=== PATIENT | female | born 1950 | race Caucasian/White ===

== ENCOUNTER 2021-02-24 14:35 | Emergency (ER) | payer MEDICARE, BC ==
[2021-02-24] MEDS ORDERED: Ibuprofen 400 MG Tab PO ONE (16:03)
--- NOTE | 2021-02-24 16:04 | EDM.PDOC ---
ED HPI GENERAL MEDICAL PROBLEM - General Chief Complaint: Respiratory Problem Stated Complaint: POSS COVID\SOB Time Seen by Provider: 02/24/21 15:25 Source of Information: Reports: Patient, RN Notes Reviewed History Limitations: Reports: No Limitations - History of Present Illness INITIAL COMMENTS - FREE TEXT/NARRATIVE: Patient is a 70-year-old female presenting to the emergency department with complaints of a 10-day history of headaches, body aches, fever, fatigue, diarrhea, and mild cough. She denies chest pain, shortness of breath, or vomiting. She was not vaccinated for Covid. Her is ill with similar symptoms. She has not taken any Tylenol or ibuprofen or any other bxfe-jzx-iqzvuaf medications for treatment of her symptoms today. Patient was not vaccinated against Covid. Generalized Pain Score (Numeric/FACES): 3 - Related Data Allergies Allergy/AdvReac Type Severity Reaction Status Date / Time No Known Allergies Allergy Verified 02/24/21 14:52 Past Medical History Cardiovascular History: Reports: Hypertension [employer] History: Reports: Musculoskeletal History: Reports: Other (See Below) Other Musculoskeletal History: right ankle surgery Psychiatric History: Reports: Anxiety, Depression - Past Surgical History GI Surgical History: Reports: Appendectomy Social & Family History - Tobacco Use Tobacco Use Status *Q: Never Tobacco User Second Hand Smoke Exposure: No - Caffeine Use Caffeine Use: Reports: Coffee - Recreational Drug Use Recreational Drug Use: No ED ROS GENERAL - Review of Systems Review Of Systems: Comprehensive ROS is negative, except as noted in HPI. ED EXAM, GENERAL - Physical Exam Exam: See Below Exam Limited By: No Limitations General Appearance: Alert, WD/WN, No Apparent Distress Respiratory/Chest: No Respiratory Distress, Lungs Clear, Normal Breath Sounds, No Accessory Muscle Use, Chest Non-Tender Cardiovascular: Normal Peripheral Pulses, Regular Rate, Rhythm, No Edema, No Gallop, No JVD, No Murmur, No Rub GI/Abdominal: Normal Bowel Sounds, Soft, Non-Tender, No Organomegaly, No Distention, No Abnormal Bruit, No Mass Neurological: Alert, Oriented, CN II-XII Intact, Normal Cognition, Normal Gait, Normal Reflexes, No Motor/Sensory Deficits Psychiatric: Normal Affect, Normal Mood Skin Exam: Warm, Dry, Intact, Normal Color, No Rash #1 Interpretation EKG Date: 02/24/21 Time: 15:33 Rhythm: NSR Rate (Beats/Min): 72 [place]: Normal P-Wave: Present QRS: Other (RBBB and LAFB) QT: Normal EKG Interpretation Comments: q wave inferior leads Course - Vital Signs Last Recorded V/S: Last Vital Signs Temp 100.5 F 02/24/21 15:34 Pulse 75 02/24/21 15:34 Resp 20 02/24/21 15:34 BP 131/78 02/24/21 15:34 Pulse Ox 100 02/24/21 15:34 - Orders/Labs/Meds Orders: Active Orders 24 hr Category Date Time Status EKG 12 Lead [EK] Stat Ther 02/24/21 16:58 Ordered Labs: Laboratory Tests 02/24/21 02/24/21 02/24/21 Range/Units 14:56 16:14 16:14 WBC 2.90 L (3.98-10.04) K/mm3 RBC 4.23 (3.98-5.22) M/mm3 Hgb 13.2 (11.2-15.7) gm/dl Hct 37.9 (34.1-44.9) % MCV 89.6 (79.4-94.8) fl MCH 31.2 (25.6-32.2) pg MCHC 34.8 (32.2-35.5) g/dl RDW Std Deviation 38.1 (36.4-46.3) fL Plt Count 151 L (182-369) K/mm3 MPV 10.7 (9.4-12.3) fl Neut % (Auto) 63.6 (34.0-71.1) % Lymph % (Auto) 24.8 (19.3-51.7) % [place] % (Auto) 11.0 (4.7-12.5) % Eos % (Auto) 0 L (0.7-5.8) Baso % (Auto) 0.3 (0.1-1.2) % Neut # (Auto) 1.84 (1.56-6.13) K/mm3 Lymph # (Auto) 0.72 L (1.18-3.74) K/mm3 [place] # (Auto) 0.32 (0.24-0.36) K/mm3 Eos # (Auto) 0.00 L (0.04-0.36) K/mm3 Baso # (Auto) 0.01 (0.01-0.08) K/mm3 Manual Slide Review Sodium 123 L (136-145) mEq/L Potassium 3.6 (3.5-5.1) mEq/L Chloride 88 L (98-107) mEq/L Carbon Dioxide 26 (21-32) mEq/L Anion Gap 12.6 (5-15) BUN 11 (7-18) mg/dL Creatinine 0.7 (0.55-1.02) mg/dL Est Cr Clr Drug Dosing 59.15 mL/min Estimated GFR (MDRD) > 60 (>60) mL/min BUN/Creatinine Ratio 15.7 (14-18) Glucose 105 H (70-99) mg/dL Calcium 8.3 L (8.5-10.1) mg/dL Total Bilirubin 0.4 (0.2-1.0) mg/dL AST 28 (15-37) U/L ALT 24 (14-59) U/L Alkaline Phosphatase 83 (46-116) U/L C-Reactive Protein 2.6 H* (<1.0) mg/dL Total Protein 6.7 (6.4-8.2) g/dl Albumin 2.8 L (3.4-5.0) g/dl Globulin 3.9 gm/dL Albumin/Globulin Ratio 0.7 L (1-2) SARS-CoV-2 RNA (ARACELI) Positive H (NEGATIVE) 02/24/21 Range/Units 19:50 WBC (3.98-10.04) K/mm3 RBC (3.98-5.22) M/mm3 Hgb (11.2-15.7) gm/dl Hct (34.1-44.9) % MCV (79.4-94.8) fl MCH (25.6-32.2) pg MCHC (32.2-35.5) g/dl RDW Std Deviation (36.4-46.3) fL Plt Count (182-369) K/mm3 MPV (9.4-12.3) fl Neut % (Auto) (34.0-71.1) % Lymph % (Auto) (19.3-51.7) % [place] % (Auto) (4.7-12.5) % Eos % (Auto) (0.7-5.8) Baso % (Auto) (0.1-1.2) % Neut # (Auto) (1.56-6.13) K/mm3 Lymph # (Auto) (1.18-3.74) K/mm3 [place] # (Auto) (0.24-0.36) K/mm3 Eos # (Auto) (0.04-0.36) K/mm3 Baso # (Auto) (0.01-0.08) K/mm3 Manual Slide Review Sodium 129 L (136-145) mEq/L Potassium (3.5-5.1) mEq/L Chloride (98-107) mEq/L Carbon Dioxide (21-32) mEq/L Anion Gap (5-15) BUN (7-18) mg/dL Creatinine (0.55-1.02) mg/dL Est Cr Clr Drug Dosing mL/min Estimated GFR (MDRD) (>60) mL/min BUN/Creatinine Ratio (14-18) Glucose (70-99) mg/dL Calcium (8.5-10.1) mg/dL Total Bilirubin (0.2-1.0) mg/dL AST (15-37) U/L ALT (14-59) U/L Alkaline Phosphatase (46-116) U/L C-Reactive Protein (<1.0) mg/dL Total Protein (6.4-8.2) g/dl Albumin (3.4-5.0) g/dl Globulin gm/dL Albumin/Globulin Ratio (1-2) SARS-CoV-2 RNA (ARACELI) (NEGATIVE) Meds: Medications Discontinued Medications Generic Name Dose Route Start Last Admin Trade Name Tiffanie PRN Reason Stop Dose Admin Sodium Chloride 1,000 mls @ 999 mls/hr 02/24/21 17:44 02/24/21 17:52 Normal Saline IV 02/24/21 18:44 999 mls/hr NOW STA Administration Ibuprofen 400 mg 02/24/21 16:03 02/24/21 17:02 Ibuprofen 400 Mg Tab PO 02/24/21 16:04 400 mg ONETIME ONE Administration - Re-Assessments/Exams Free Text/Narrative Re-Assessment/Exam: Patient is a 70-year-old male presenting to the emergency department with complaints of headaches, body aches, fever, fatigue, diarrhea. Symptoms have been present for 10 days. Exam is unremarkable. Symptoms are highly suspicious for Covid.'s is ill with similar symptoms. Covid test is pending. I discussed monoclonal antibody treatment, and she declined. Patient is oxygen 100% on room air, therefore chest x-ray is not indicated. I have ordered Covid test and blood work. She would like to order some lunch. Once she has some food in her stomach, will give her ibuprofen. 02/24/21 17:43 Hematology significant for WBC low at 2.9, sodium low at 123, chloride 88. CRP 2.6. She is Covid positive. Results discussed with patient. She reports that she has been drinking a lot of plain water and not eating, therefore this is likely hemodilution. She is not having any symptoms of hyponatremia. I will give her 1 L bolus of normal saline. Have also provided her with chicken broth with additional sodium added to it to sip on. She does not want to be admitted, and unfortunate there are no beds available to admit her into. Plan will be to recheck her sodium once the fluids have completed and he she has finished the broth. 02/24/21 20:41 Repeat sodium was 129. Results discussed with patient. She will be discharged home. Recommend that she stop drinking plain water and change to Gatorade, Powerade, or Pedialyte. Recommend adding additional salt to her food for the next few days. She should follow-up in the clinic in 2 days to have her blood work rechecked. Discussed return precautions. Discharge instructions as documented. Departure - Departure Time of Disposition: 20:41 Disposition: Home, Self-Care 01 Condition: Good Clinical Impression: Hyponatremia, COVID-19 - Discharge Information *PRESCRIPTION DRUG MONITORING PROGRAM REVIEWED*: No *COPY OF PRESCRIPTION DRUG MONITORING REPORT IN PATIENT DENNIS: No Instructions: COVID-19, Hyponatremia Referrals: PCP,None [Primary Care Provider] - Forms: ED Department Discharge Additional Instructions: You were seen in the emergency department today for evaluation of Covid symptoms. Work-up included blood work, EKG, and Covid test. Your Covid test results were positive. EKG was normal. Your sodium was found to be low, likely related to drinking excess amounts of water and not eating. While in the ER, you received IV fluids as well as oral sodium. This did improve your sodium level prior to discharge. Recommend that you refrain from drinking plain water. Beverages such as Gatorade, Powerade, and Pedialyte have electrolytes. Recommend salting your foods for the next few days. Follow-up in the clinic in 2 days to have your blood work rechecked. If you should experience any new or worsening symptoms, particularly headache, dizziness, or any confusion, please return to the emergency department for reevaluation. Sepsis Event Note (ED) - Evaluation Sepsis Screening Result: No Definite Risk - Focused Exam Vital Signs: Vital Signs Temp Pulse Resp BP Pulse Ox 02/24/21 15:34 100.5 F 75 20 131/78 100 - My Orders Last 24 Hours: My Active Orders 02/24/21 16:58 EKG 12 Lead [EK] Stat - Assessment/Plan Last 24 Hours: My Active Orders 02/24/21 16:58 EKG 12 Lead [EK] Stat
[2021-02-24] MEDS ORDERED: Sodium Chloride 0.9% 1,000 ML IV STA (17:44)
== END 2021-02-24 21:23 | disposition home or self-care (01) ==
LOC: JD.ED 14:35
DX: U07.1 COVID-19 (principal); E87.1 Hypo-osmolality and hyponatremia; I10 Essential (primary) hypertension; Z90.49 Acquired absence of other specified parts of digestive tract
CPT/HCPCS: 36415; 80053; 84295; 85025; 86140; 93005; 99284; A9270; J7030; U0002

== ENCOUNTER 2021-12-12 09:18 | Day surgery (SDC) | payer MEDICARE, BC ==
[~2021-12-12 09:18] MED LIST: Lidocaine 1% PF 2 ML SDV INJECT SCH
[2021-12-12] MEDS: Polymyxin B/Trimethoprim 10 ML Bottle EYELF SCH ×4 (09:37→11:41)
[2021-12-12] MEDS: Brimonidine 0.2% Ophth Soln 5 ML Bottle EYELF SCH ×4 (09:42→11:41)
[2021-12-12] MEDS: Phenylephrine 2.5% Ophth Soln 2 ML Bot EYELF SCH ×5 (09:47→10:40)
[2021-12-12] MEDS: Tropicamide 1% Ophth Soln 15 ML Bottle EYELF SCH ×4 (09:52→10:19)
[2021-12-12] MEDS: Tetracaine HCl/PF 0.5% 4 ML Bottle EYEBOTH SCH ×3 (10:25→10:50)
[2021-12-12] MEDS: Cefuroxime 10 MG/ML SYRINGE EYELF SCH ×2 (11:10→11:41)
[2021-12-12] MEDS: Pilocarpine 4% Ophth Soln 15 ML Bot EYELF SCH ×2 (11:11→11:41)
== END 2021-12-12 11:20 | disposition home or self-care (01) ==
LOC: JD.SDS 09:18
PROVIDERS: ATTEND Ophthalmology
DX: H25.813 Combined forms of age-related cataract, bilateral (principal); H16.223 Keratoconjunctivitis sicca, not specified as Sjogren's, bilateral; H02.834 Dermatochalasis of left upper eyelid; H02.831 Dermatochalasis of right upper eyelid; H43.811 Vitreous degeneration, right eye; I10 Essential (primary) hypertension; Z90.49 Acquired absence of other specified parts of digestive tract; Z98.890 Other specified postprocedural states; Z79.899 Other long term (current) drug therapy
CPT/HCPCS: 66984; J0697; C1780

== ENCOUNTER 2022-01-09 14:09 | Day surgery (SDC) | payer MEDICARE, BC ==
[~2022-01-09 14:09] MED LIST changes: +Cefuroxime 10 MG/ML SYRINGE EYERT SCH; +Pilocarpine 4% Ophth Soln 15 ML Bot EYERT SCH
[2022-01-09] MEDS: Polymyxin B/Trimethoprim 10 ML Bottle EYERT SCH ×3 (15:03→16:43)
[2022-01-09] MEDS: Brimonidine 0.2% Ophth Soln 5 ML Bottle EYERT SCH ×3 (15:08→16:43)
[2022-01-09] MEDS: Phenylephrine 2.5% Ophth Soln 2 ML Bot EYERT SCH ×5 (15:19→16:21)
[2022-01-09] MEDS: Tropicamide 1% Ophth Soln 15 ML Bottle EYERT SCH ×4 (15:21→15:50)
[2022-01-09] MEDS: Tetracaine HCl/PF 0.5% 4 ML Bottle EYEBOTH SCH ×4 (16:10→16:31)
== END 2022-01-09 16:51 | disposition home or self-care (01) ==
LOC: JD.SDS 14:09
PROVIDERS: ATTEND Ophthalmology
DX: H25.811 Combined forms of age-related cataract, right eye (principal); H18.413 Arcus senilis, bilateral; H43.811 Vitreous degeneration, right eye; H16.223 Keratoconjunctivitis sicca, not specified as Sjogren's, bilateral; I10 Essential (primary) hypertension; M19.90 Unspecified osteoarthritis, unspecified site; F32.A Depression, unspecified; F41.9 Anxiety disorder, unspecified; Z90.49 Acquired absence of other specified parts of digestive tract; Z90.710 Acquired absence of both cervix and uterus; Z79.899 Other long term (current) drug therapy; Z79.52 Long term (current) use of systemic steroids; Z96.1 Presence of intraocular lens
CPT/HCPCS: 66984; J0697; C1780

== ENCOUNTER 2024-08-08 09:42 | Emergency (ER) | payer MEDICARE, BC ==
[2024-08-08] MEDS ORDERED: Sodium Chloride 0.9% 10 ML Syringe FLUSH PRN (10:26)
[2024-08-08 10:50] LABS: BASOPHILS PERCENT AUTO 0.3 % (0.0-1.0); EOSINOPHILS ABSOLUTE AUTO 0.1 K/mm3 (0.0-0.4); EOSINOPHILS PERCENT AUTO 0.6 % (0.0-6.0); HEMATOCRIT 38.2 % (37.0-47.0); HEMOGLOBIN 13.3 gm/dl (12.0-16.0); IMMATURE GRAN ABSOLUTE AUTO 0.07 K/mm3 (0.00-0.05); IMMATURE GRAN PERCENT AUTO 0.5 % (0.0-0.4); LYMPHOCYTES ABSOLUTE AUTO 1.2 K/mm3 (1.0-4.8); LYMPHOCYTES PERCENT AUTO 8.5 % (24.0-44.0); MEAN CORPUSCULAR HEMOGLOBIN 31.1 pg (28.0-32.0); MEAN CORPUSCULAR HGB CONC 34.8 g/dl (32.0-36.0); MEAN CORPUSCULAR VOLUME 89.5 fl (83.0-99.0); MEAN PLATELET VOLUME 9.3 fl (9.4-12.3); MONOCYTES ABSOLUTE AUTO 1.5 K/mm3 (0.0-0.8); MONOCYTES PERCENT AUTO 10.1 % (0.0-8.0); NEUTROPHILS ABSOLUTE AUTO 11.6 K/mm3 (1.8-7.7); PLATELET COUNT,PLT 287 K/mm3 (150-400); RED BLOOD CELL COUNT 4.27 M/mm3 (4.10-5.30); WHITE BLOOD CELL COUNT,WBC 14.52 K/mm3 (3.9-11.3)
[2024-08-08 11:11] LABS: A/G RATIO 0.6 (1-2); ALBUMIN 2.9 g/dl (3.4-5.0); ANION GAP 11.7 (5-15); BILIRUBIN TOTAL 0.5 mg/dL (0.2-1.0); BUN/CREATININE RATIO 12.9 (14-18); CALCIUM 9.4 mg/dL (8.5-10.1); CREATININE 0.7 mg/dL (0.55-1.02); EST CRCL DRUG DOSING (CG) 54.01 mL/min; MAGNESIUM 1.8 mg/dL (1.8-2.4); POTASSIUM,K 3.7 mEq/L (3.5-5.1); PROTEIN TOTAL,TP 7.6 g/dl (6.4-8.2)
== END 2024-08-08 12:02 | disposition home or self-care (01) ==
LOC: JD.ED 09:42
DX: J18.9 Pneumonia, unspecified organism (principal); E87.1 Hypo-osmolality and hyponatremia; I10 Essential (primary) hypertension; Z79.899 Other long term (current) drug therapy; Z90.49 Acquired absence of other specified parts of digestive tract
CPT/HCPCS: 36415; 71045; 71045-26; 80053; 83735; 85025; 87428-QW; 99284